=== PATIENT | female | born 1985 | race African-American/Black ===

== ENCOUNTER 2023-06-26 08:36 | Emergency (ER) | payer OTHER, SELFPAY ==
[2023-06-26 08:47] VITALS: BP 108/74; PULSE 110; RESP 16; TEMP 37.1; O2SAT 100
--- NOTE | 2023-06-26 09:05 | ED.URI ---
HPI - URI/Sore Throat General Chief Complaint: Upper Respiratory Infection Stated Complaint: Sore Throat/Headache/Fever Time Seen by Provider: 06/26/23 09:05 Source: patient Mode of arrival: ambulatory Limitations: no limitations History of Present Illness HPI Narrative: 38-year-old female presents with complaint of cough, nasal congestion, headache, low-grade fever, fatigue starting yesterday. Taking Tylenol to treat symptoms. Denies nausea vomiting diarrhea. Reports that she had influenza in March, symptoms are not as worse as they were then. No chest pain or shortness of breath. All systems reviewed and negative except as noted above. Related Data Allergies Allergy/AdvReac Type Severity Reaction Status Date / Time tramadol Allergy Unknown Verified 06/26/23 08:57 Review of Systems Review of Systems: CONSTITUTIONAL: Reports fever, chills, or sweats. EYES: Denies visual changes, redness, or discharge. ENT: Reports rhinorrhea, congestion, sore throat. Denies otalgia. CARDIOVASCULAR: Denies chest pain, palpitations, or edema. RESPIRATORY: Reports cough. Denies dyspnea. GASTROINTESTINAL: Denies abdominal pain, nausea, vomiting, or diarrhea. GENITOURINARY: Denies dysuria or hematuria. SKIN: Denies rash or itching. MUSCULOSKELETAL: Denies back pain, joint pain, or myalgia. NEUROLOGIC: Denies headache, numbness, or weakness. PSYCHIATRIC: Denies anxiety or depression. All other systems reviewed are negative, except as documented in HPI. PMFSH Comments At time of signature, agree with nursing past medical, surgical, social and family history. There is no relevant family history pertinent to the presenting complaint. Exam Narrative: GENERAL: This is a well-nourished, well-developed patient, in no apparent distress. HEAD: normocephalic, atraumatic. EYES: PERRL. Sclera clear/white. Vision is grossly intact. EARS: External ears normal, auditory canals clear and without drainage, TMs normal without perforation. Hearing grossly intact. NOSE: External nose normal with no obvious nasal discharge, nares without redness, no rhinorrhea. THROAT: Mucous membranes moist, posterior pharynx clear. NECK: Neck supple, non-tender without lymphadenopathy, masses or thyromegaly. CARDIOVASCULAR: Regular rate and rhythm without murmurs, gallops, or rubs. RESPIRATORY: Clear to auscultation. Breath sounds equal bilaterally. No wheezes, rales, or rhonchi. SKIN: warm, Dry, intact with no suspicious lesions or rash, good texture and turgor. NEURO: awake, alert, and oriented to person, place and time. There were no obvious focal neurologic abnormalities. EXTREMITIES: No joint tenderness, effusion, or edema noted. Course Course Level of Care: Express Care Visit Vital Signs Vital signs: Vital Signs Temperature 37.1 C 06/26/23 08:47 Pulse Rate 110 H 06/26/23 08:47 Respiratory Rate 16 06/26/23 08:47 Blood Pressure 108/74 06/26/23 08:47 Pulse Oximetry 100 06/26/23 08:47 Oxygen Delivery Room Air 06/26/23 08:47 Temperature 37.1 C 06/26/23 08:47 Pulse Rate 110 H 06/26/23 08:47 Respiratory Rate 16 06/26/23 08:47 Blood Pressure 108/74 06/26/23 08:47 Pulse Oximetry 100 06/26/23 08:47 Oxygen Delivery Room Air 06/26/23 08:47 Review MDM - URI/Sore Throat MDM Narrative Medical decision making narrative: Patient is aware of diagnosis, understands and agrees to treatment plan. Anticipatory guidance given. Patient agrees to follow-up as directed and is aware of reasons to seek care at the emergency department. 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 She is well appearing, nontoxic. Differential Diagnosis Differential diagnosis: Likely influenza Lab Data Labs: Influenza A Screen Positive Reference Range: Negative Influenza B Scr
== END 2023-06-26 09:17 | disposition home or self-care (01) ==
PROVIDERS: Emergency Provider Nurse Practitioner Family
DX: J10.1 Influenza due to other identified influenza virus with other respiratory manifestations (principal); Z20.822 Contact with and (suspected) exposure to COVID-19
CPT/HCPCS: 87081; 87426; 87804; 87880; 99213; G0463